=== PATIENT | female | born 1980 | race Caucasian/White ===

== ENCOUNTER 2019-02-02 17:07 | Emergency (ER) | payer SELFPAY ==
[2019-02-02 17:17] VITALS: BP 146/84
--- NOTE | 2019-02-02 17:41 | ER Document Report ---
ED Medical Screen (RME) - General Chief Complaint: Cough Stated Complaint: POSSIBLE PNEUMONIA Time Seen by Provider: 02/02/19 17:38 Primary Care Provider: SHAYE STOKES MD [Primary Care Provider] - Follow up as needed Mode of Arrival: Ambulatory Information source: Patient Notes: 38-year-old female presents with cough and sore throat since Wednesday. Reports she is coughing up some green slime. Reports fevers at night. Patient is nontoxic looking respiratory rate even unlabored clear I have greeted and performed a rapid initial assessment of this patient. A comprehensive ED assessment and evaluation of the patient, analysis of test results and completion of the medical decision making process will be conducted by additional ED providers. Dictation of this chart was performed using voice recognition software; therefore, there may be some unintended grammatical errors. TRAVEL OUTSIDE OF THE [place] IN LAST 30 DAYS: No - Related Data Allergies/Adverse Reactions: Penicillins Allergy (Verified 02/02/19 17:35) Past Medical History - Social History Chew tobacco use (# tins/day): No Frequency of alcohol use: None Physical Exam - Vital signs Vitals: Temp Pulse Resp BP Pulse Ox 98.1 F 96 21 H 146/84 H 97 02/02/19 17:15 02/02/19 17:15 02/02/19 17:15 02/02/19 17:15 02/02/19 17:15 Course - Vital Signs Vital signs: Temp Pulse Resp BP Pulse Ox 98.1 F 96 21 H 146/84 H 97 02/02/19 17:15 02/02/19 17:15 02/02/19 17:15 02/02/19 17:15 02/02/19 17:15 Doctor's Discharge - Discharge Referrals: SHAYE STOKES MD [Primary Care Provider] - Follow up as needed
--- NOTE | 2019-02-02 18:04 | RADIOLOGY REPORT (SQ) ---
EXAM DESCRIPTION: CHEST 2 VIEWS COMPLETED DATE/TIME: 02/02/2019 5:47 pm REASON FOR STUDY: cough COMPARISON: None. EXAM PARAMETERS: NUMBER OF VIEWS: two views TECHNIQUE: Digital Frontal and Lateral radiographic views of the chest acquired. RADIATION DOSE: NA LIMITATIONS: none FINDINGS: LUNGS AND PLEURA: No opacities, masses or pneumothorax. No pleural effusion. MEDIASTINUM AND HILAR STRUCTURES: No masses or contour abnormalities. HEART AND VASCULAR STRUCTURES: Heart normal size. No evidence for failure. BONES: No acute findings. HARDWARE: None in the chest. OTHER: No other significant finding. IMPRESSION: NO ACUTE RADIOGRAPHIC FINDING IN THE CHEST. TECHNICAL DOCUMENTATION: JOB ID: [id number] [employer]- All Rights Reserved Reading location - IP/workstation name: [email or web address]
--- NOTE | 2019-02-02 18:32 | ER Document Report ---
HPI - HPI Time Seen by Provider: 02/02/19 17:38 Pain Level: 3 Notes: Patient is a 38-year-old female who presents to the ED complaining of nasal congestion/discharge, s/t, semi-productive cough 3 days. Patient states that she is still eating and drinking without difficulties. She is still urinating normally & having normal bowel movements. Patient has been using some [id number] meds for symptoms. She denies any significant past medical history including cardiopulmonary history and immunocompromised conditions. Patient denies any smoking or IV drug use. Denies any current headache, neck pain, chest pain, palpitations, syncope, shortness of breath, wheeze, dyspnea, abdominal pain, nausea/vomiting/diarrhea, urinary retention, dysuria, hematuria, or rash. - ROS Systems Reviewed and Negative: Yes All other systems reviewed and negative - EENT EENT: REPORTS: Sore Throat - RESPIRATORY Respiratory: REPORTS: Coughing - REPRODUCTIVE Reproductive: DENIES: : Past Medical History - General Information source: Patient - Social History Smoking Status: Never Smoker - exposed to 2nd hand smoke in household Chew tobacco use (# tins/day): No Frequency of alcohol use: None Family History: Reviewed & Not Pertinent Patient has suicidal ideation: No Patient has homicidal ideation: No Renal/ Medical History: Denies: Hx Peritoneal Dialysis Vertical Provider Document - CONSTITUTIONAL Agree With Documented VS: Yes Notes: PHYSICAL EXAMINATION: GENERAL: Well-appearing, well-nourished and in no acute distress. A&Ox4. Answers questions appropriately. Moves comfortably w/o notable distress HEAD: Atraumatic, normocephalic. EYES: Pupils equal round and reactive to light, extraocular movements intact, sclera anicteric, conjunctiva are normal. ENT: EAC clear b/l. TM's intact b/l without erythema, fluid, or perforation. Nares patent and with clear discharge. oropharynx no erythema without exudates. No tonsilar hypertrophy without erythema or exudate. No palatine shift. Uvula midline. No tongue protrusion. No drooling, hoarseness, or airway compromise. Moist mucous membranes. No sinus tenderness. NECK: Normal range of motion, supple without lymphadenopathy. No rigidity/meningismus. LUNGS: Breath sounds clear to auscultation bilaterally and equal. No wheezes rales or rhonchi. No retractions HEART: Regular rate and rhythm without murmurs, rubs, gallops. ABDOMEN: Soft, nontender, nondistended abdomen. No guarding, no rebound. Normal bowel sounds present. No CVA tenderness bilaterally. NEUROLOGICAL: Normal speech, normal gait. PSYCH: Normal mood, normal affect. SKIN: Warm, Dry, normal turgor, no rashes or lesions noted. - INFECTION CONTROL TRAVEL OUTSIDE OF THE [place] IN LAST 30 DAYS: No Course - Re-evaluation Re-evalutation: 02/02/19 18:33 Patient is an afebrile, well-hydrated, 38-year-old female who presents to the ED with acute URI, suspect viral. Vitals are acceptable. PE is otherwise unremarkable. Rapid strep negative with throat culture pending. Chest x-ray is negative. No other labs or imaging warranted at this time based on H&P. Patient has no significant cardiopulmonary or immunocompromised medical conditions. Patient's lungs are clear to auscultation bilaterally without tachycardia, hypoxia, or tachypnea. Patient is tolerating p.o. without any difficulties. Low suspicion for any meningitis, sepsis, peritonsillar/pharyngeal abscess, respiratory compromise, severe dehydration, or other emergent systemic condition at this time. Patient is aware this condition can change from initial presentation and she needs to monitor symptoms closely. Conservative measures otherwise for symptoms. Recheck with your PCM in 3-5 days. Return to the ED with any worsening/concerning symptoms otherwise as reviewed in discharge. Patient is in agreement. - Vital Signs Vital signs: Temp Pulse Resp BP Pulse Ox 98.1 F 96 21 H 146/84 H 97 02/02/19 17:15 02/02/19 17:15 02/02/19 17:15 02/02/19 17:15 02/02/19 17:15 Discharge - Discharge Clinical Impression: Acute URI Condition: Stable Disposition: HOME, SELF-CARE Instructions: Upper Respiratory Illness ([facility]) Additional Instructions: Maintain adequate fluid intake tylenol/ibuprofen as needed alternating every 3 hours for fever/body ache over the counter cold medication as needed for symptoms Humidified air may help Wash your hands regularly Wear a mask when coughing F/u: with your PCM in 2-3 days for a recheck Return to the ED with any fever, altered mental status/behavior, chest pain, palpitations, syncope, headache, neck pain/stiffness, shortness of breath, chest pains, wheezing, drooling, trouble swallowing/breathing, abdominal pain, n/v/d, rash, or worsening/concerning symptoms otherwise. Prescriptions: Benzonatate [Tessalon Perle 100 mg Capsule] 100 mg PO Q8HP PRN #15 cap PRN Reason: Forms: Elevated Blood Pressure Referrals: SHAYE STOKES MD [Primary Care Provider] - Follow up as needed
== END 2019-02-02 18:44 | disposition home or self-care (01) ==
LOC: ER 17:07
DX: J06.9 Acute upper respiratory infection, unspecified (principal); R09.81 Nasal congestion; R05 Cough; J02.9 Acute pharyngitis, unspecified; R09.89 Other specified symptoms and signs involving the circulatory and respiratory systems
CPT/HCPCS: 71046; 87070; 87880; 99283